=== PATIENT | female | born 1935 | race Caucasian/White ===

== ENCOUNTER 2020-10-07 08:30 | Inpatient (IN) | payer MEDICARE, OTHER ==
[~2020-10-07] VITALS: Ht 172.7 cm; Wt 85.7 kg
[2020-10-07] MEDS ORDERED: OXYB10TA4 PO (08:45)
[2020-10-07] MEDS ORDERED: BUDE10.2 IH (08:45)
[2020-10-07] MEDS ORDERED: ALEN70TA3 PO (08:45)
[2020-10-07] MEDS ORDERED: LOSA50TA39 PO (08:45)
[2020-10-07] MEDS ORDERED: BUPR300T52 PO (08:45)
[2020-10-07] MEDS ORDERED: LEVO50TA8 PO (08:45)
[2020-10-07] MEDS ORDERED: QUET25TA PO (08:45)
[2020-10-07] MEDS ORDERED: CARV3.122 PO (08:45)
[2020-10-07] MEDS ORDERED: DIVA250T4 PO (08:45)
[2020-10-07] MEDS ORDERED: PAXIL PO (08:45)
--- NOTE | 2020-10-07 09:00 | NUR ---
DR. QUINTANILLA AT BED SIDE.
[2020-10-07 11:30] VITALS: BP 138/84
--- NOTE | 2020-10-07 11:30 | NUR ---
pt transfered to mhu in stable condition, pt remained calm and comfortable the whole er stay. pt needs max assistance from transfer from bed to wheelchair.
[2020-10-07] MEDS ORDERED: LORAZEPAM 0.5 MG TABLET PO PRN (12:15)
[2020-10-07] MEDS ORDERED: MAG HYDROX/AL HYDROX/SIMETH 30 ML LIQUID UDC PO PRN (12:15)
[2020-10-07] MEDS ORDERED: MAGNESIUM HYDROXIDE 30 ML LIQUID UDC PO PRN (12:15)
--- NOTE | 2020-10-07 12:30 | NUR ---
GPS ADMISSION: Admitted this 85 year old female under the care of Dr. Correa and Dr. Perry. Pt brought to MHU from ER via WC, arrived safely and in stable condition. VSS. Pt on 5150 hold for Danger To Self. Per hold pt "attempted suicide" by "getting a bottle of pills". Pt denies SI/HI/AH/VH at this time. Pt able to VCFS. Pt A&Ox3, cooperative and calm at this time. Pt participated in admission process and skin check. Belongings inventoried. Admission orders entered and carried out. Pt oriented to the unit and surroundings, advisement of hold served. Safety precautions in place. Will continue to monitor.
--- NOTE | 2020-10-07 14:05 | NUR ---
SW Family Contact: SW attempted to call patient's son Antonio Romero ([phone]) to discuss treatment and discharge plan however no answer and voicemail box is full.
--- NOTE | 2020-10-07 14:05 | NUR ---
MEKHI Initial Discharge Plan: Patient resides at home [address] [place] [address] ([phone]) with her son and family Antonio Romero ([phone]). Patient will return home upon discharge. MEKHI left a voicemail for patient's son Antonio to discuss treatment and discharge plan. MEKHI will continue to work with patient, family, and MD to ensure a safe and proper discharge plan.
--- NOTE | 2020-10-07 14:06 | NUR ---
Substance [place]: Patient was provided with a brief substance abuse intervention for alcohol and prescription drug abuse and referred to [facility] [address] [facility] [place] [address] ([phone]); [place] [address], [address], [place] [address] ([phone]); [facility] ([phone]); [facility] ([phone]); [facility] ([phone]); and National Suicide Prevention Lifeline ([phone]).
--- NOTE | 2020-10-07 14:07 | NUR ---
Firearms Report: Motion Picture Cameraman completed and submitted a DOJ firearms report for 5150 danger to self certifications. A copy of report has been placed in patient chart.
--- NOTE | 2020-10-07 14:14 | NUR ---
UR NOTE: Per ROMY, 3 Days Approved Auth# [id number] OBTAINED FROM [place] with [facility] Type Bar And Segment Assembler: Michelle Neves ([phone] ext [phone])
--- NOTE | 2020-10-07 14:33 | NUR ---
UR NOTE: Auth#[id number] with [facility] Welder/Fitter: Michelle Neves ([phone]) is authorized until 10/09 and will require a review.
[2020-10-07] MEDS: DIVALPROEX 250 MG TABLET.DR PO SCH (17:26)
[2020-10-07] MEDS: CARVEDILOL 3.125 MG TABLET PO SCH (17:26)
--- NOTE | 2020-10-07 18:50 | NUR ---
Shift summary: Pt in dining room, able to verbalize needs, calm upon approach at this time. Due medications given per order, pt adherent with medication regimen, no a/r noted. Pt continues to deny SI/HI/AH/VH at this time. Pt unable to safely ambulate at this time, pending PT evaluation. Pt received shower today. Safety ensured. Will endorse care to cage shift manager nurse.
--- NOTE | 2020-10-07 19:45 | NUR ---
PATIENT ALERT ABLE TO MAKE NEEDS KNOWN, NO COMPLAIN OF PAIN, ASSISTED WITH TOILETING, KEPT CLEAN AND DRY, CONT TO MONITOR.
[2020-10-07] MEDS: QUETIAPINE FUMARATE 25 MG TABLET PO SCH (20:34)
[2020-10-07 21:40] VITALS: BP 122/65
[2020-10-08 07:30] VITALS: BP 141/79
--- NOTE | 2020-10-08 07:30 | NUR ---
Received report from GOYO Mercado. All questions, comments, and concerns were addressed. Received patient asleep in her assigned bed. Bed is in low and locked position.
[2020-10-08 08:16] LABS: BILIRUBIN,TOTAL 0.2 mg/dL (0.2-1.0); CREATININE 1.2 mg/dL (0.6-1.3); POTASSIUM 3.9 mmol/L (3.5-5.1); TOTAL PROTEIN, SERUM 6.2 g/dL (6.4-8.2)
[2020-10-08] MEDS: OXYBUTYNIN XL 5 MG TABSR PO SCH (08:55)
[2020-10-08] MEDS: DIVALPROEX 250 MG TABLET.DR PO SCH ×2 (08:55→16:17)
[2020-10-08] MEDS: LEVOTHYROXINE SODIUM 50 MCG TABLET PO SCH (08:55)
[2020-10-08] MEDS: CARVEDILOL 3.125 MG TABLET PO SCH ×2 (08:56→16:17)
[2020-10-08] MEDS: LOSARTAN POTASSIUM 50 MG TABLET PO SCH (08:56)
[2020-10-08] MEDS ORDERED: LEVOTHYROXINE SODIUM 50 MCG TABLET PO SCH (09:00)
[2020-10-08] MEDS: FLUTICASONE/VILANTEROL 1 EACH BLST.W.DEV INH SCH (10:43)
[2020-10-08] MEDS: ACETAMINOPHEN 325 MG TABLET PO PRN ×2 (10:48→20:14)
--- NOTE | 2020-10-08 10:50 | NUR ---
MEKHI Family Contact: MEKHI spoke with patient's son Antonio Romero ([phone]) and discussed treatment and discharge plan. Antonio stated he is the DPOA and will be bringing in the documents on Tuesday. MEKHI advised to give the documents to the charge nurse.
--- NOTE | 2020-10-08 12:56 | NUR ---
WOUND CARE CONSULT: PT SEEN FOR SLIGHT REDNESS TO GROIN FOLDS, PRESENT ON ADMISSION. RECOMMENDATIONS MADE FOR SKIN PROTECTION. DISCUSSED WITH NURSING STAFF. MD IN AGREEMENT WITH PLAN OF CARE.
[2020-10-08] MEDS ORDERED: Z GUARD REMEDY PASTE 57 GM TUBE TOP PRN (13:00)
[2020-10-08 16:00] VITALS: BP 118/64
[2020-10-08] MEDS: CLOTRIMAZOLE 1% CREAM 30 GM TUBE TOP SCH (16:22)
--- NOTE | 2020-10-08 17:50 | NUR ---
patient is alert and oriented. she is anxious and guarded but cooperative and redirectable. dressed appropriately and has positive interaction with others. patient is adherent with medication, no adverse reaction noted. she denies SI/HI, denies AH/VH. patient is able to communicate needs to staff. patient encouraged to participate in the unit groups and therapeutic milieu.
[2020-10-08 19:59] VITALS: BP 117/75
[2020-10-08] MEDS: QUETIAPINE FUMARATE 25 MG TABLET PO SCH (20:14)
[2020-10-08] MEDS: Z GUARD REMEDY PASTE 57 GM TUBE TOP SCH (20:16)
[2020-10-08] MEDS: TEMAZEPAM 7.5 MG CAPSULE PO PRN (21:57)
--- NOTE | 2020-10-08 22:20 | NUR ---
PATIENT COMPLAIN OF LEFT FOOT/ANKLE PAIN. IT WAS NOTED MILD BRUISING ON LEFT LATERAL ASPECT. SHE C/O PAIN TO THE TOUCH. CELE MCNEAL NP WAS NOTIFY AND NEW ORDER OBTAINED TO DO ROUTINE LEFT ANKLE XRAY. ORDER WAS NOTED AND CARRIED OUT. WILL MONITOR FOR RESULTS. TYLENOL 650 MG PO PRN WAS GIVEN EARLIER.
[2020-10-09] MEDS: LEVOTHYROXINE SODIUM 50 MCG TABLET PO SCH (06:19)
--- NOTE | 2020-10-09 06:29 | NUR ---
patient is alert and oriented. Compliant with medication, no adverse reaction noted. she denies SI/HI. patient is able to communicate needs to staff. Slept 7.15 hours. All needs were met and attended to. Safety measures and checks remain intact.
[2020-10-09 07:30] VITALS: BP 115/58
--- NOTE | 2020-10-09 07:30 | NUR ---
Received pt. in bed sleeping easily arousable, later on pt. transfer to beverley-chair.
[2020-10-09] MEDS: OXYBUTYNIN XL 5 MG TABSR PO SCH (08:33)
[2020-10-09] MEDS: CARVEDILOL 3.125 MG TABLET PO SCH ×2 (08:35→16:16)
[2020-10-09] MEDS: CLOTRIMAZOLE 1% CREAM 30 GM TUBE TOP SCH ×2 (08:35→16:18)
[2020-10-09] MEDS: DIVALPROEX 250 MG TABLET.DR PO SCH ×2 (08:35→16:18)
[2020-10-09] MEDS: FLUTICASONE/VILANTEROL 1 EACH BLST.W.DEV INH SCH (08:44)
[2020-10-09] MEDS: Z GUARD REMEDY PASTE 57 GM TUBE TOP SCH ×2 (08:46→20:19)
[2020-10-09] MEDS: LOSARTAN POTASSIUM 50 MG TABLET PO SCH (08:55)
--- NOTE | 2020-10-09 09:28 | NUR ---
Pt. ate breakfast while in beverley-chair, AAOx 3 vitals stable and compliant with medications. Easily approachable and follow commands. Will continue with care plan.
--- NOTE | 2020-10-09 10:44 | NUR ---
MEKHI Family Contact: MEKHI recieved a voicemail from patient's daughter, Annie ([phone]) who was requesting to have information about the patient. MEKHI spoke with patient's son Antonio Romero ([phone]) who is the DPOA and discussed treatment and discharge plan, and advised he inform his sister, natalia's daughter.
--- NOTE | 2020-10-09 11:25 | NUR ---
MEKHI Family Contact: SW spoke with patient's son Antonio Romero ([phone]) and informed of the patient's PC hearing for this afternoon.
--- NOTE | 2020-10-09 13:15 | NUR ---
MEKHI PC Hearing: Patient had 5250 probable cause hearing today and it was upheld for grave disability and danger to self.
--- NOTE | 2020-10-09 13:20 | NUR ---
UR NOTE: Auth#[id number] with [facility] Stone Belt Sander: Michelle Neves ([phone] ext [phone]). MEKHI called and left clinical review via voicemail and requested a call back from Michelle.
[2020-10-09 16:00] VITALS: BP 98/41
--- NOTE | 2020-10-09 18:37 | NUR ---
patient left sitting on Esme-chair, patient AAOx3-4 compliant with nursing meds and care. Vitals stable, no c/o any discomfort.
[2020-10-09 19:34] LABS: *BILIRUBIN,URIN NEGATIVE (NEGATIVE); *BLOOD, URINE NEGATIVE (NEGATIVE); *CLARITY,URINE CLEAR (CLEAR); *COLOR,URINE YELLOW (YELLOW); *KETONES,URINE NEGATIVE (NEGATIVE); *UROBILINOGEN,URINE 0.2 E.U./dl (NORMAL); LEUKOCYTE ESTERASE ,URINE NEGATIVE (NEGATIVE); NITRITE, URINE NEGATIVE (NEGATIVE); PH,URINE 5.5 (5.0-8.0); UGLUCOSE NEGATIVE (NEGATIVE)
[2020-10-09 19:53] VITALS: BP 111/58
[2020-10-09] MEDS: QUETIAPINE FUMARATE 25 MG TABLET PO SCH (20:19)
[2020-10-09] MEDS: ACETAMINOPHEN 325 MG TABLET PO PRN (21:26)
[2020-10-09] MEDS: TEMAZEPAM 7.5 MG CAPSULE PO PRN ×3 (21:26→21:43)
--- NOTE | 2020-10-10 05:28 | NUR ---
Kerry has been on the Esme chair last night; assisted to bathroom then back to room; pt rested well in between care; pt was pleasant; safety maintained; continue to monitor;
[2020-10-10] MEDS: LEVOTHYROXINE SODIUM 50 MCG TABLET PO SCH (06:19)
[2020-10-10 07:30] VITALS: BP 110/55
[2020-10-10] MEDS: DIVALPROEX 250 MG TABLET.DR PO SCH ×2 (08:57→16:29)
[2020-10-10] MEDS: CARVEDILOL 3.125 MG TABLET PO SCH ×2 (09:00→16:29)
[2020-10-10] MEDS: LOSARTAN POTASSIUM 50 MG TABLET PO SCH (09:00)
[2020-10-10] MEDS: FLUTICASONE/VILANTEROL 1 EACH BLST.W.DEV INH SCH (09:01)
[2020-10-10] MEDS: OXYBUTYNIN XL 5 MG TABSR PO SCH (09:02)
[2020-10-10] MEDS: CLOTRIMAZOLE 1% CREAM 30 GM TUBE TOP SCH ×2 (09:03→16:30)
[2020-10-10] MEDS: Z GUARD REMEDY PASTE 57 GM TUBE TOP SCH ×2 (09:03→20:05)
--- NOTE | 2020-10-10 09:34 | NUR ---
UR NOTE: Auth#[id number] with [facility] Construction Executive: Michelle Neves ([phone]). Michelle called this social services designee and left a voicemail regarding clinical review, for more information. MEKHI called and left clinical review via voicemail and requested a call back from Michelle.
[2020-10-10 15:01] VITALS: BP 109/54
--- NOTE | 2020-10-10 17:46 | NUR ---
Received patient aox3-4, patient calm cooperative, denies SI and HI,,patient denies AH/VH, patient on monitoring for danger to self, no sign of distress at this time and been compliant with treatment , patient participated with group therapy
[2020-10-10] MEDS: QUETIAPINE FUMARATE 25 MG TABLET PO SCH (20:05)
[2020-10-10 20:43] VITALS: BP 111/54
--- NOTE | 2020-10-11 05:54 | NUR ---
GPS: Remain calm and cooperative with meds and care. slept 6.45 hrs through the night. no agitation noted at this time. resting in bed comfortably.continue plan of care.
[2020-10-11] MEDS: LEVOTHYROXINE SODIUM 50 MCG TABLET PO SCH (06:04)
[2020-10-11 07:30] VITALS: BP 118/68
--- NOTE | 2020-10-11 07:30 | NUR ---
received patient calm cooperative, patient compliant with medication, assisted with ADL , monitored [id number] for safety
[2020-10-11] MEDS: FLUTICASONE/VILANTEROL 1 EACH BLST.W.DEV INH SCH (08:38)
[2020-10-11] MEDS: LOSARTAN POTASSIUM 50 MG TABLET PO SCH (08:38)
[2020-10-11] MEDS: DIVALPROEX 250 MG TABLET.DR PO SCH ×2 (08:38→16:31)
[2020-10-11] MEDS: CARVEDILOL 3.125 MG TABLET PO SCH ×2 (08:39→16:32)
[2020-10-11] MEDS: OXYBUTYNIN XL 5 MG TABSR PO SCH (08:39)
[2020-10-11] MEDS: CLOTRIMAZOLE 1% CREAM 30 GM TUBE TOP SCH ×2 (08:40→16:32)
[2020-10-11] MEDS: Z GUARD REMEDY PASTE 57 GM TUBE TOP SCH ×2 (08:40→20:13)
--- NOTE | 2020-10-11 15:32 | NUR ---
patient received a visitor his son Antonio Romero ([phone]), together with a female visitor assisted to the patio and with patient, patient son initially called 10 minutes prior to visit , saying that he will bring his mother to home against medical advice and will not need doctors order for the Discharge since he drove all the way from [place], patient son also tried to bring in his service dog ,however per policy that any animals are not allowed to come in , eventually the patient son came in the unit to visit Addendum: 10/11/20 at 1646 by DAVEY GIBSON RN patient son on phone conversation prior to visit threatening the staff and told the scientific technical writer" i know the Law"
[2020-10-11 15:46] VITALS: BP 105/52
[2020-10-11 20:00] VITALS: BP 128/71
[2020-10-11] MEDS: QUETIAPINE FUMARATE 25 MG TABLET PO SCH (20:12)
--- NOTE | 2020-10-11 22:04 | NUR ---
patient c/o anxiety. ativan 0.5 mg po given per patient request.
--- NOTE | 2020-10-11 23:05 | NUR ---
GPS: Patient is calm now. prn effective for anxiety.
--- NOTE | 2020-10-12 05:54 | NUR ---
GPS: Remain calm and cooperative with meds and care. slept 6.15 hrs through the night. no agitation noted at this time. resting in bed comfortably.continue plan of care.
[2020-10-12] MEDS: LEVOTHYROXINE SODIUM 50 MCG TABLET PO SCH (06:01)
[2020-10-12 07:30] VITALS: BP 150/60
[2020-10-12 07:33] LABS: BASOPHILS # (AUTO) 0.1 K/uL (0.0-8.0); BASOPHILS % (AUTO) 1.4 % (0.0-2.0); EOSINOPHILS # (AUTO) 0.3 K/uL (0.0-0.7); EOSINOPHILS % (AUTO) 4.7 % (0.0-7.0); HEMATOCRIT 33.9 % (31.2-41.9); HEMOGLOBIN 11.4 g/dL (10.9-14.3); LYMPHOCYTES # (AUTO) 1.8 K/uL (20.0-40.0); LYMPHOCYTES % (AUTO) 28.8 % (20.5-51.5); MEAN CORPUSCULAR HEMOGLOBIN 29.9 uug (24.7-32.8); MEAN CORPUSCULAR HGB CONC 34 g/dL (32.3-35.6); MEAN CORPUSCULAR VOLUME 89.3 fL (75.5-95.3); MONOCYTES # (AUTO) 0.8 K/uL (2.0-10.0); MONOCYTES % (AUTO) 13.5 % (0.0-11.0); NEUTROPHILS # (AUTO) 3.1 K/uL (1.8-8.9); NEUTROPHILS % (AUTO) 51.6 % (38.5-71.5); PLATELET COUNT (AUTO) 198 K/uL (179-408); WHITE BLOOD COUNT (AUTO) 6.1 K/uL (3.8-11.8)
[2020-10-12 07:52] LABS: BILIRUBIN,TOTAL 0.3 mg/dL (0.2-1.0); POTASSIUM 4.3 mmol/L (3.5-5.1)
[2020-10-12] MEDS: DIVALPROEX 250 MG TABLET.DR PO SCH ×2 (08:16→16:45)
[2020-10-12] MEDS: OXYBUTYNIN XL 5 MG TABSR PO SCH (08:16)
[2020-10-12] MEDS: LOSARTAN POTASSIUM 50 MG TABLET PO SCH (08:17)
[2020-10-12] MEDS: Z GUARD REMEDY PASTE 57 GM TUBE TOP SCH ×2 (08:17→20:03)
[2020-10-12] MEDS: CLOTRIMAZOLE 1% CREAM 30 GM TUBE TOP SCH ×2 (08:18→16:57)
[2020-10-12] MEDS: FLUTICASONE/VILANTEROL 1 EACH BLST.W.DEV INH SCH (08:20)
[2020-10-12] MEDS: CARVEDILOL 3.125 MG TABLET PO SCH ×2 (08:23→16:53)
--- NOTE | 2020-10-12 18:55 | NUR ---
Received Patient AAOx3. cooperative with all meds and nursing care..get patient up to beverley-chair, assisted with all ADLS.patient denies any SI/HI.
[2020-10-12 19:54] VITALS: BP 129/50
[2020-10-12] MEDS: QUETIAPINE FUMARATE 25 MG TABLET PO SCH (20:03)
--- NOTE | 2020-10-12 20:30 | NUR ---
RECEIVED PATIENT IN THE DAYROOM. SHE IS NOTED A/O X 3 CALM AND PLEASANT UPON APPROACHED, SHE IS ABLE TO VERBALIZED FEELINGS. SHE DENIED SI/VH/AH/HI. SHE IS ABLE TO VERBALLY CFS. V/S STABLE. COMPLAINT WITH MEDICATION REGIMENT. PT IS REASSURED FOR HER SAFETY. SAFETY AND FALL PRECAUTION IN PLACE. WILL CONTINUE TO MONITOR.
--- NOTE | 2020-10-12 21:30 | NUR ---
PATIENT NOTED CRYING AND SOBBING AFTER TALKING TO HIS SON VIA PHONE. WHEN ABOUT HER FEELINGS. SHE STATED, "I AM TIRED THAT PEOPLE ARE ALWAYS ASKING ME IF I HEAR VOICES. YES I HEAR VOICES!!! THE VOICE OF MY GRANDSON ASKING ME TO BRING HIS SHOES. YOU KNOW MY GRANDSON AND I AM VERY SAD AND NOBODY CARES". THIS SUPERVISING FILM OR VIDEOTAPE EDITOR LISTENED TO PATIENT AND WAS ABLE TO REASSURED HER AND REDIRECTED HER. WILL CONTINUE TO MONITOR FOR ANY CHANGES IN CONDITION.
[2020-10-13] MEDS ORDERED: ALENDRONATE SODIUM 70 MG TABLET PO SCH ×2 (06:00→07:00)
[2020-10-13] MEDS: LEVOTHYROXINE SODIUM 50 MCG TABLET PO SCH (07:13)
[2020-10-13 07:30] VITALS: BP 127/59
--- NOTE | 2020-10-13 07:30 | NUR ---
Received report from GOYO Farias. All questions, comments, and concerns were addressed. Received patient awake, alert and oriented. Bed is in low and locked position with bed alarm on.
[2020-10-13] MEDS: OXYBUTYNIN XL 5 MG TABSR PO SCH (08:34)
[2020-10-13] MEDS: DIVALPROEX 250 MG TABLET.DR PO SCH (08:34)
[2020-10-13 08:35] VITALS: BP 127/89
[2020-10-13] MEDS: FLUTICASONE/VILANTEROL 1 EACH BLST.W.DEV INH SCH (08:35)
[2020-10-13] MEDS: LOSARTAN POTASSIUM 50 MG TABLET PO SCH (08:35)
[2020-10-13] MEDS: CARVEDILOL 3.125 MG TABLET PO SCH (08:35)
[2020-10-13] MEDS: CLOTRIMAZOLE 1% CREAM 30 GM TUBE TOP SCH (08:39)
[2020-10-13] MEDS: Z GUARD REMEDY PASTE 57 GM TUBE TOP SCH (08:39)
--- NOTE | 2020-10-13 09:05 | NUR ---
MEKHI Coordination of Care: MEKHI spoke with patient's son, Antonio ([phone]) regarding aftercare follow ups. Antonio stated that he would like to make the patient's aftercare appointments and he does not want this home health care social worker to make the appointments. Antonio provided the patient's aftercare follow up physicians information below. Patient will be following up with her primary physician Dr. Silver Barragan [address] [place] [id number] ([phone]). Patient is referred for outpatient psychiatric services with Dr. Mirtha Thompson [address] [place] [phone] ([phone]).
--- NOTE | 2020-10-13 09:12 | NUR ---
SW Discharge Note: Patient will be discharged home [address] [place] [address] ([phone]) with her son Antonio Romero ([phone]). Antonio will be picking up the patient today at 3pm. Patient presents alert and oriented x4. Patient is aware and agreeable with discharge plan. Patient presents with euthymic mood and congruent affect. Patient denies suicidal or homicidal ideation. Patient will be following up with her primary physician Dr. Silver Barragan [address], [place] [address] ([phone]). Patient is referred for outpatient psychiatric services with Dr. Mirtha Thompson [address] [facility] [facility], [place] [address] ([phone]). Patient was provided with a brief substance abuse intervention and referred to [facility] [address] [place] [address] ([phone]); [facility] [address], [address], [place] [address] ([phone]); [facility] ([phone]); [facility] ([phone]); [facility] ([phone]); and National Suicide Prevention Lifeline ([phone]).
--- NOTE | 2020-10-13 09:17 | NUR ---
UR NOTE: Auth#[id number] with [facility] Benefits Clerk: Michelle Neves ([phone]). SW provided discharge clinicals via voicemail.
--- NOTE | 2020-10-13 14:31 | NUR ---
DISCHARGE NOTE: Patient is being discharged home to [address] [place] [address] ([phone]). Patient is being picked up by her son, Antonio Romero, who will be transporting patient back in his private care. Antonio Romero will also be assisting with care for patient once home. Per and per patient's son, he will be making patient's follow up appointments with psychiatrist and sail lay out worker. Per psychiatrist, no discharge prescriptions written for patient because she has current prescribed medications at home. Patient states she has medications at home. Patient is provided with discharge education about instructions, importance of follow up care as an outpatient to meet mental health needs and medical needs, and education about psychotropic medications. Patient is able to verbalize understanding. Patient's belongings inventoried with patient and returned to patient. Patient denies suicidal and homicidal ideation. Patient is alert and oriented in reality. Skin is clear and intact.
== END 2020-10-13 14:30 | disposition home or self-care (01) | DRG 885 ==
LOC: ER 08:30 → GPS 10:57
PROVIDERS: ADMIT Psychiatry & Neurology Psychosomatic Medicine; ATTEND Internal Medicine
DX: F31.9 Bipolar disorder, unspecified (principal); F01.50 Vascular dementia, unspecified severity, without behavioral disturbance, psychotic disturbance, mood disturbance, and anxiety; R45.851 Suicidal ideations; E03.9 Hypothyroidism, unspecified; E11.9 Type 2 diabetes mellitus without complications; M81.0 Age-related osteoporosis without current pathological fracture; J45.909 Unspecified asthma, uncomplicated; I10 Essential (primary) hypertension
CPT/HCPCS: 36415; 73610; 80164; 85025; A4663; J3490; J8499